=== PATIENT | female | born 1955 | race Caucasian/White ===

== ENCOUNTER 2021-07-15 05:55 | Day surgery (SDC) | payer OTHER ==
[2021-07-14 11:59] LABS: COVID AG,FIA SOURCE NASOPHARYNGEAL
[~2021-07-15] VITALS: Ht 152.4 cm; Wt 59.5 kg
[~2021-07-15 05:55] MED LIST: AMLO-257 PO; KETOROLAC TROMETHAMINE 0.5% 5 ML OPHTHALMIC SOLUTION ONE; LOSA50TA37 PO; MOXIFLOXACIN HCL 0.5% 3 ML OPHTHALMIC SOLUTION ONE; PHENYLEPHRINE HCL 2.5% 2 ML OPHTHALMIC SOLUTION ONE; RINGERS SOLUTION,LACTATED 500 ML IV ONE; TROPICAMIDE 1% 2 ML OPHTHALMIC SOLUTION ONE
[2021-07-15] MEDS ORDERED: CHONDR SULF A SOD/HYALURONATE 1.05 ML KIT IO ONE (05:56)
[2021-07-15] MEDS ORDERED: EPINEPHrine 1:1,000 [1 MG/ML] AMP ET ONE (05:56)
[2021-07-15] MEDS ORDERED: POVIDONE-IODINE 10% 15 ML SOLUTION UD TP ONE (05:56)
[2021-07-15] MEDS ORDERED: TETRACAINE HCL/PF 0.5% 4 ML OPHTHALMIC SOLUTION OD ONE (05:56)
[2021-07-15] MEDS ORDERED: LIDOCAINE/PF 1% 2 ML VIAL CAUDAL ONE (05:56)
[2021-07-15] MEDS: KETOROLAC TROMETHAMINE 0.5% 5 ML OPHTHALMIC SOLUTION OS SCH ×3 (06:18→06:29)
[2021-07-15] MEDS: PHENYLEPHRINE HCL 2.5% 2 ML OPHTHALMIC SOLUTION OS SCH ×3 (06:18→06:29)
[2021-07-15] MEDS: TROPICAMIDE 1% 2 ML OPHTHALMIC SOLUTION OS SCH ×3 (06:18→06:29)
[2021-07-15] MEDS: MOXIFLOXACIN HCL 0.5% 3 ML OPHTHALMIC SOLUTION OS SCH ×3 (06:18→06:29)
[2021-07-15] MEDS ORDERED: MIDAZOLAM HCL 2 MG/2 ML VIAL IVP ONE (12:00)
[2021-07-15] MEDS ORDERED: FentaNYL CITRATE PF 100 MCG/2 ML VIAL IVP ONE (12:00)
== END 2021-07-15 08:35 | disposition home or self-care (01) ==
LOC: SURGERY 05:55
PROVIDERS: ATTEND Ophthalmology
DX: H25.12 Age-related nuclear cataract, left eye (principal); I10 Essential (primary) hypertension; Z79.899 Other long term (current) drug therapy; Z98.890 Other specified postprocedural states
CPT/HCPCS: 66984; 87426; 93005; A9575; C9803; J0171; J2250; J3010; J3490; J7120; V2632; Q9967

== ENCOUNTER → 2021-12-16 | Day surgery (SDC) | payer OTHER ==
[2021-12-14 10:05] LABS: COVID AG,FIA SOURCE NASAL SWAB
[~2021-12-16] MED LIST changes: +BALANCED SALT 15 ML OPHTHALMIC IRRIG.SOLN ONE; +CHONDR SULF A SOD/HYALURONATE 1.05 ML KIT IO ONE; +DEXAMETHASONE 4 MG TABLET ONE; +EPINEPHrine 1:10,000 [1 MG/10 ML] SYRINGE ONE; +FentaNYL CITRATE PF 100 MCG/2 ML VIAL IVP ONE; +LIDOCAINE/PF 1% 2 ML VIAL ONE; +LOSA-382 PO; -LOSA50TA37 PO; +MIDAZOLAM HCL 2 MG/2 ML VIAL IVP ONE; +POVIDONE-IODINE 10% 120 ML SOLUTION TP ONE; +TETRACAINE HCL VISCOUS 0.5% 5 ML OPHTHALMIC SOLUTION ONE
[2021-12-16] MEDS: KETOROLAC TROMETHAMINE 0.5% 5 ML OPHTHALMIC SOLUTION OD SCH ×3 (08:05→08:16)
[2021-12-16] MEDS: TROPICAMIDE 1% 2 ML OPHTHALMIC SOLUTION OD SCH ×3 (08:05→08:16)
[2021-12-16] MEDS: PHENYLEPHRINE HCL 2.5% 2 ML OPHTHALMIC SOLUTION OD SCH ×3 (08:05→08:16)
[2021-12-16] MEDS: MOXIFLOXACIN HCL 0.5% 3 ML OPHTHALMIC SOLUTION OD SCH ×3 (08:06→08:16)
== END | disposition still patient (30) ==
LOC: SURGERY 07:32
PROVIDERS: ATTEND Ophthalmology
DX: H25.11 Age-related nuclear cataract, right eye (principal); Z79.899 Other long term (current) drug therapy; Z98.890 Other specified postprocedural states
CPT/HCPCS: 66984; 87426; C9803; J0171; J2250; J3010; J3490; J7120; J8540; Q9967; V2632